=== PATIENT | female | born 1950 | race Caucasian/White ===

== ENCOUNTER 2016-05-05 11:30 | Inpatient (IN) | payer OTHER ==
[~2016-05-05] VITALS: Ht 170 cm; Wt 89.0 kg
[~2016-05-05 11:30] MED LIST: AMBIEN5 MG PO; ASPIRIN EC325 MG PO; EFFEXOR XR75 MG PO; FEOSOL325 MG PO; HABITROL14 MG TD; LORTAB 7.5-3251 EACH PO; METOPROLOL PO; NORCO 5-325 TA1 EACH PO; NORCO 7.5-3251 EACH PO; OMEPRAZOLE20 MG PO; PRINIVIL10 MG PO; SEROQUEL 25MG T25 MG PO; ZOFRAN4 MG PO
[2016-05-05 13:18] LABS: BILIRUBIN NEGATIVE (NEGATIVE); BLOOD NEGATIVE Ery/uL (NEGATIVE); CLARITY CLEAR (CLEAR); COLOR YELLOW (YELLOW); GLUCOSE (U) NORMAL (NORMAL); KETONE (U) NEGATIVE (NEGATIVE); LEUKOCYTES NEGATIVE Leu/uL (NEGATIVE); NITRITE NEGATIVE (NEGATIVE); PROTEIN NEGATIVE (NEGATIVE); SPECIFIC GRAVITY >=1.030 (1.001-1.030)
[2016-05-06 05:07] LABS: HGB 10.2 g/dl (12.5-16.0); MCH 31.7 pg (25.0-31.0); MCHC 32.9 g/dL (32.0-36.0); MCV 96.3 fL (78.0-100.0); MPV 9.6 fL (6.0-9.5); RBC 3.22 M/uL (4.20-5.40); RDW 12.2 % (11.5-14.0); WBC 14.7 K/uL (4.0-10.5)
[2016-05-06 05:25] LABS: CREATININE 0.8 mg/dL (0.5-1.0); POTASSIUM 4.7 mmol/L (3.5-5.1)
[2016-05-07 05:42] LABS: HCT 29.4 % (37.0-47.0); HGB 9.5 g/dl (12.5-16.0); MCH 30.9 pg (25.0-31.0); MCHC 32.3 g/dL (32.0-36.0); MCV 95.8 fL (78.0-100.0); MPV 10.1 fL (6.0-9.5); RBC 3.07 M/uL (4.20-5.40); RDW 12.2 % (11.5-14.0); WBC 7.9 K/uL (4.0-10.5)
[2016-05-07 05:55] LABS: CREATININE 0.8 mg/dL (0.5-1.0); POTASSIUM 4.4 mmol/L (3.5-5.1)
--- NOTE | 2016-05-08 02:00 | NUR ---
BED ALARM NOTED TO BE GOING OFF, PATIENT FOUND SITTING ON THE SIDE OF THE BED WITH A PUDDLE OF URINE UNDER HER BED, SHEETS AND GOWN WERE URINE SOAKED, PATIENT WAS ASSISTED INTO A DRY GOWN, HER BED SHEETS CHANGED, AND HER FLOOR CLEANED. PATIENT WAS REMINDED TO CALL OUT FOR HELP WITH TOILETING. PATIENT WAS RE-EDUCATED ABOUT CALL LIGHT USAGE. PATIENT DEMONSTRATED USE OF CALL LIGHT WITH NO PROBLEM.
[2016-05-08 05:07] LABS: HCT 27.5 % (37.0-47.0); MCH 31.3 pg (25.0-31.0); MCHC 32.7 g/dL (32.0-36.0); MCV 95.5 fL (78.0-100.0); RBC 2.88 M/uL (4.20-5.40); RDW 11.9 % (11.5-14.0); WBC 7.6 K/uL (4.0-10.5)
[2016-05-08 05:29] LABS: CREATININE 0.8 mg/dL (0.5-1.0); POTASSIUM 4.6 mmol/L (3.5-5.1)
== END 2016-05-08 13:50 | DRG 470 ==
LOC: FMS 11:30
PROVIDERS: Internal Medicine; ADMIT Legal Medicine
PROC: 8E0YXBZ Computer Assisted Procedure of Lower Extremity (ICD-10-PCS; 2016-05-05)
PROC: 0SRC0J9 Replacement of Right Knee Joint with Synthetic Substitute, Cemented, Open Approach (ICD-10-PCS; principal; 2016-05-05 11:30)
DX: M17.11 Unilateral primary osteoarthritis, right knee (principal); I10 Essential (primary) hypertension; M21.061 Valgus deformity, not elsewhere classified, right knee; Z87.81 Personal history of (healed) traumatic fracture; F41.9 Anxiety disorder, unspecified; F32.9 Major depressive disorder, single episode, unspecified; F17.210 Nicotine dependence, cigarettes, uncomplicated; M62.838 Other muscle spasm; Z86.73 Personal history of transient ischemic attack (TIA), and cerebral infarction without residual deficits; R51 Headache
CPT/HCPCS: 36415; 73560; 80048; 81003; 86850; 86900; 86901; 88305; 88311; 94010; 94762; 97110; 97116; 97163; 97166; 97530; 97530-GP; 97535; C1713; C1776; J0131; J0697; J1100; J1885; J2060; J2270; J2274; J2405; J2704; J2795; J2916; J3010

== ENCOUNTER 2016-05-08 13:50 | Inpatient (IN) | payer OTHER ==
--- NOTE | 2016-05-09 16:12 | NUR ---
PT CONFUSED EARLIER THIS MORNING, SEEMS MORE CLEAR AT THIS TIME. DAUGHTER AT BS CONCERNED ABOUT CONFUSION. LABS, UA COMPLETED YESTERDAY AND WNL. DAUGHTER STATES SHE DOES NOT WANT PT TO HAVE ANY EXTRA MEDICATIONS BESIDES PAIN MEDICATION D/T CONFUSION
--- NOTE | 2016-05-09 18:46 | NUR ---
PT STATES "ARE WE ARE A ASSISTED HOUSE?" "I DONT EVEN KNOW WHAT THAT IS, I SAW IT ON A COMMERCIAL OR SOMETHING" WANTING MUSCLE RELAXER AND TOLD PT DAUGHTER DID NOT WANT HER TAKING EXTRA PRN MEDICATIONS D/T CONFUSION. SHE STATES "SO WHAT AM I DOING HERE" SHE THEN CALLED DAUGHTER, DAUGHTER CALLED NURSES STATION AND STATED "MOM SAID ALL HER MEDICATIONS WERE DISCONTINUED AND YOU ALL WONT BRING HER A FAN"
--- NOTE | 2016-05-16 10:02 | NUR ---
PT STATES "I JUST FEEL BAD" C/O SHOULDER PAIN. NORCO 5/325 MG TAB PO GIVEN PER REQUEST. V/S 107/59, HR 96-112 EXTRA DOSE OF CARDIZEM GIVEN ALONG WITH LASIX, O2 SAT 92% ON 3.5L WILL CHECK BACK WITH PT AND CONTINUE TO MONITOR
--- NOTE | 2016-05-19 15:51 | NUR ---
LATE ENTRY. 05/16/16 TC. WITH KHADRA WITH [employer]. SHE ADVISED THAT PT. WILL BE APPROVED THROUGH 05/21/16 AND WILL NEED TO D/C HOME ON 05/22/16. CHECKED WITH [facility] HER CO PAY WILL BE $40.00 A VISIT. ADVISED PT. AND HER DAUGHTER ALONA OF THIS INFORMATION.
--- NOTE | 2016-05-19 15:52 | NUR ---
MET WITH PT. COMPLETED DISCHARGE PAPERWORK. ADVISED HER THAT HER FIRST APPT. WITH [facility] WILL BE 05/23/16 @ 8:00 A.M. PT. HAS A CANE, CRUTCHES, ROLLING WALKER, ELEVATED TOLIET SEAT, SHOWER SEAT. D/C NOTICE AND QUESTIONNAIRE GIVEN.
--- NOTE | 2016-05-19 16:09 | NUR ---
PER IAN, CARET[facility] AND [facility]BRENDA THEY DO NOT TAKE HER INSURANCE, [employer]. I HAVE ADVISED HER INSURANCE COMPANY OF THIS. PT. HAS CHOSEN TO GO TO [facility] OUTPT. DUE TO NOT HAVING ANY HH SERVICES. PER VIKKI PALACIO. COPAY WILL BE $40.00 A VISIT. PT. AND GARY HAVE BEEN NOTIFIED OF THIS.
--- NOTE | 2016-05-20 16:11 | NUR ---
RECEIVED PHONE CALL FROM KHADRA WITH [employer]. SHE ADVISED THAT [facility] HAS AGREED TO ENTER INTO AN INDIVIDUAL CONTRACT FOR FOR MS[employer]. I ADVISED MS. REYES OF THIS INFORMATION, BUT SHE REFUSED STATING THAT SHE WAS GOING TO OUTPT. PLANNED. TC. BACK TO KHADRA ADVISED HER OF THIS INFORMATION. ALSO HAD MS. REYES SIGN THE MEDICARE NOTICE OF NON-COVERAGE PROVIDED BY [employer] AND FAXED IT BACK TO KHADRA AT [employer].
--- NOTE | 2016-05-22 09:14 | NUR ---
DISCHARGE INSTRUCTIONS GIVEN TO PATIENT VOICED COMPLETE UNDERSTANDING. AWAITING RIDE HOME, CONDITION STABLE.
--- NOTE | 2016-05-22 11:33 | NUR ---
PT. D/C HOME WITH HER DAUGHTER THIS DATE. PT. HAS A ROLLING WALKER, CANE, CRUTCHES, WHEELCHAIR, SHOWER CHAIR. PT. ALSO HAS MD2U. PT. HAS AN APPT. WITH [facility]. FOR 05/23/16 @ 8:00 A.M. PT. HAS COMPLETED HER XARELTO THERAPY. D/C NOTICE AND QUESTIONNAIRE GIVEN.
== END 2016-05-22 10:15 | disposition home or self-care (01) | DRG 560 ==
LOC: FSNU 13:50
PROVIDERS: ADMIT Legal Medicine
DX: Z47.1 Aftercare following joint replacement surgery (principal); D62 Acute posthemorrhagic anemia; I10 Essential (primary) hypertension; Z96.651 Presence of right artificial knee joint; F32.9 Major depressive disorder, single episode, unspecified; F17.200 Nicotine dependence, unspecified, uncomplicated; R51 Headache; Z86.73 Personal history of transient ischemic attack (TIA), and cerebral infarction without residual deficits
CPT/HCPCS: 92523; 97110; 97116; 97162; 97166; 97530; 97530-GP; 97532; 97535

== ENCOUNTER 2016-10-25 15:41 | Emergency (ER) | payer OTHER | END 2016-10-25 17:36 | disposition home or self-care (01) | LOC: FER 15:41 | DX: K04.7 Periapical abscess without sinus (principal); K02.9 Dental caries, unspecified; Z79.899 Other long term (current) drug therapy | CPT/HCPCS: 99282 ==